=== PATIENT | female | born 1985 | race Caucasian/White ===

== ENCOUNTER 2020-06-01 15:41 | Emergency (ER) | payer OTHER, SELFPAY ==
[2020-06-01 15:46] VITALS: BP 150/78; PULSE 97; RESP 20; TEMP 36.2; O2SAT 99
--- NOTE | 2020-06-01 16:15 | DI.RAD_ITS ---
EXAM: XR ELBOW LT COMPLETE CLINICAL HISTORY: pain, fall. TECHNIQUE: 2D digital imaging was performed. COMPARISON: No exams were available for comparison FINDINGS: BONES: There is a 0.1 x 0.4 cm crescent shaped osseous fragment between the distal humerus and the ra dial head suspicious for displaced fracture fragment. Its site of origin is indeterminate. No bony destructive lesion is seen. JOINTS: The elbow is normally aligned. There is a joint effusion present. SOFT TISSUE: Normal. IMPRESSION: 1. Bony fragment interposed between the distal humerus and the radial head most suggestive of an intr a-articular fracture fragment. The site of origin is indeterminate. A CT scan should be considered for further evaluation. 2. Moderate joint effusion which may represent hemarthrosis. DATA REPOSITORY: RADIATION DOSE DELIVERED:
[2020-06-01] MEDS: Acetaminophen 500 MG TAB 1000 MG PO (16:25)
[2020-06-01] MEDS: Ibuprofen 600 MG TAB PO (16:25)
--- NOTE | 2020-06-01 16:55 | DI.VRAD_ITS ---
Addendum created by Evaristo Reynoso MD on 06/01/2020 4:56:40 PM EST: Findings were discussed with GAVIN MORALES at 06/01/2020 4:56 PM EST. Initial report created on 06/01/2020 4:55:28 PM EST: PROCEDURE INFORMATION: Exam: XR Left Elbow Exam date and time: 06/01/2020 4:42 PM Age: 34 years old Clinical indication: Injury or trauma; Fall; Work related; Blunt trauma (contusions or hematomas); Elbow; Left TECHNIQUE: Imaging protocol: XR Left elbow. Views: 3 or more views. COMPARISON: No relevant prior studies available. FINDINGS: Bones/joints: There is a moderate elbow joint effusion. On the oblique view, there is a 1 x 4 mm ossified body projecting at the radial head articular surface in the region of the radial humeral joint, consistent with tiny fracture fragment. There is a suggestion of cortical irregularity and possible subtle cortical step-off of the radial head articular surface on this view and findings suggest tiny intra-articular fracture of the radial head. The joint spaces are maintained without degenerative changes. Mineralization is normal. There are no subluxations. Soft tissues: Normal. IMPRESSION: 1. Findings suggest tiny intra-articular fracture involving the radial head as described above. Follow-up films in 10 days could be obtained as clinically indicated. 2. Moderate elbow joint effusion, may represent hemarthrosis. Dictated and Authenticated by: Evaristo Reynoso MD. Ordering:IVANA Ojeda MD
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
[2020-06-01 17:42] VITALS: BP 138/82; PULSE 99; RESP 16; TEMP 36.5; O2SAT 96
== END 2020-06-01 17:35 | disposition home or self-care (01) ==
PROVIDERS: Emergency Provider Nurse Practitioner Acute Care; PCP Nurse Practitioner Adult Health
DX: S52.122A Displaced fracture of head of left radius, initial encounter for closed fracture (principal); W19.XXXA Unspecified fall, initial encounter; Y99.0 Civilian activity done for income or pay; Y92.210 Daycare center as the place of occurrence of the external cause; E11.9 Type 2 diabetes mellitus without complications
CPT/HCPCS: 24650; 73080

== ENCOUNTER 2020-06-02 15:06 | Outpatient (CLI) | payer OTHER, SELFPAY ==
--- NOTE | 2020-06-02 14:45 | DI.RAD_ITS ---
EXAM: XR ELBOW LT COMPLETE CLINICAL HISTORY: LEFT ELBOW ELBOW. TECHNIQUE: 2D digital imaging was performed. COMPARISON: CR,XR XR ELBOW LT COMPLETE from 06/01/2020 FINDINGS: BONES: The crescentic density seen between the radial head and the distal humerus is not visualized o n the current examination. The articular surfaces appear well maintained. No definite fractures eddie ntified. If there is concern for an occult fracture is CT scan should be considered. No bony destru ctive lesion is seen. JOINTS: The elbow is normally aligned. A joint effusion is again seen. SOFT TISSUE: Normal. IMPRESSION: Joint effusion. If there is concern for an occult fracture or internal derangement, a CT scan or MRI should be considered for further evaluation. DATA REPOSITORY: RADIATION DOSE DELIVERED:
== END 2020-06-02 15:26 ==
PROVIDERS: PCP Nurse Practitioner Adult Health; Referring Provider Nurse Practitioner Adult Health; Visit Provider Student in an Organized Health Care Education/Training Program
DX: M25.422 Effusion, left elbow (principal)
CPT/HCPCS: 73080

== ENCOUNTER 2020-06-16 01:32 | Outpatient (CLI) | payer SELFPAY ==
--- NOTE | 2020-06-16 14:00 | DI.CT_ITS ---
EXAM: CT UPPER EXTREMITY LT WO CLINICAL HISTORY: Loose body, fracture, radiocapitellar joint,LT ELBOW FX,M24.022,M25.529, TECHNIQUE: Imaging Protocol: Axial computed tomography images with coronal and sagittal reformatted images were created and reviewed. CONTRAST MATERIAL: Noncontrast COMPARISON: CR,XR XR ELBOW LT COMPLETE from 06/01/2020 CR,XR XR ELBOW LT COMPLETE from 06/01/2020 CR XR ELBOW LT COMPLETE from 06/02/2020 CR XR ELBOW LT COMPLETE from 06/02/2020 FINDINGS: There is a small declivity in the capitellum. There is a curvilinear bony fragment positioned kennel supervisor ior to the radial head. There is a slight declivity in the lateral aspect of the radial head. There is a bony fragment seen positioned posterior to the humerus, in the joint space. An additional tiny bony fragment is seen anteriorly in the joint space close to the midline. A joint effusion is seen. IMPRESSION: Small fractures at the articular aspect of the capitellum as well as lateral aspect of the radial hea d with displaced fracture fragments in the joint space. RADIATION DOSE DELIVERED: 122.08mGy.cm Total DLP DATA REPOSITORY: All CT scans at this facility are submitted to the National Radiology Data Registry (NRDR) Dose Index Registry (DIR) with the [employer] (A[employer]). RADIATION OPTIMIZATION: All CT scans at this facility use at least one of these dose optimization te chniques: automated exposure control; mA and/or kV adjustment per patient size (includes targeted exa ms where dose is matched to clinical indication); or iterative reconstruction.
== END 2020-06-16 01:52 ==
PROVIDERS: PCP Nurse Practitioner Adult Health; Visit Provider Student in an Organized Health Care Education/Training Program
DX: M24.022 Loose body in left elbow (principal); S52.122A Displaced fracture of head of left radius, initial encounter for closed fracture; S42.452A Displaced fracture of lateral condyle of left humerus, initial encounter for closed fracture
CPT/HCPCS: 73200

== ENCOUNTER 2020-08-25 13:48 | Outpatient (CLI) | payer OTHER, SELFPAY ==
--- NOTE | 2020-08-25 13:30 | DI.RAD_ITS ---
EXAM: XR ELBOW LT COMPLETE CLINICAL HISTORY: f/u. TECHNIQUE: 2D digital imaging was performed. COMPARISON: CR XR ELBOW LT COMPLETE from 06/02/[address] UPPER EXTREMITY LT WO from 06/16/2020 FINDINGS: BONES: The radial and capitellar fractures are not well seen on the x-ray of the elbow. They are bet ter appreciated on the CT scan from 06/16/2020. No acute displaced fracture is seen. No bony destru ctive lesion is seen. JOINTS: The elbow is normally aligned. No joint effusion is seen. SOFT TISSUE: Normal. IMPRESSION: DATA REPOSITORY: RADIATION DOSE DELIVERED:
== END 2020-08-25 13:49 | disposition home or self-care (01) ==
LOC: DIORS 13:48
PROVIDERS: PCP Nurse Practitioner Adult Health; Visit Provider Student in an Organized Health Care Education/Training Program
DX: M25.522 Pain in left elbow (principal); S52.122D Displaced fracture of head of left radius, subsequent encounter for closed fracture with routine healing
CPT/HCPCS: 73080

== ENCOUNTER 2021-04-21 01:34 | Outpatient (CLI) | payer SELFPAY ==
--- NOTE | 2021-04-21 13:00 | NS.NUTBLAN_ITS ---
Anju was referred to Medical Nutrition Therapy for weight management and diabetes self management. 5'5 270 lbs, BMI: 45. Most recent A1C: 9.2%. Meds: Metformin 1000 mg qd, 5 mg glipizide qd. 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 She reports no time to exercise or check blood sugars. Has limited income for groceries. Strong fam hx of Dm2, had GDM with second . Diet Recall: Breakfast: Iced Coffee, Lunch- school lunch, Dinner- home cooked, mostly rice or pasta dishes. Session today focused on weight loss options. Introduced option of hypocaloric diet that will lead to 10% weight loss (27 lbs) in next 6 months and help reduce A1C. Also discussed option of weight loss surgery which will lead to 60-80% weight loss of excess weight (80-100 lbs weight loss) and hopefully put Dm in remission. Provided [facility] bariatric program link. Educated Anju on how to follow lower carb, lower calorie meal plan with focus on complex carbs, lean protein and healthy fats. Provided meal plans. Session today also included placing Dexcom 6 continuous glucose monitor and synched it with her iphone for remote monitoring. CGM will be useful tool in seeing how various meals affect her blood sugars. CGM can help with weight loss as well, as its advisable to limit foods that spike blood sugars after meals for weight loss to be acheived. follow up planned 04/30/21 at 2 pm for CGM data evaluation. Will provide PCP with all CGM data.
== END 2021-04-21 01:35 | disposition home or self-care (01) ==
LOC: DS 01:34
PROVIDERS: PCP Nurse Practitioner Adult Health; Visit Provider Dietitian, Registered
DX: E11.9 Type 2 diabetes mellitus without complications (principal); Z68.42 Body mass index [BMI] 45.0-49.9, adult; Z79.84 Long term (current) use of oral hypoglycemic drugs; Z71.3 Dietary counseling and surveillance
CPT/HCPCS: 97802

== ENCOUNTER 2021-05-04 08:56 | Outpatient (CLI) | payer SELFPAY ==
--- NOTE | 2021-05-04 10:00 | NS.NUTBLAN_ITS ---
Anju returns for Medical Nutrition Therapy for diet education for weight management. 5'5 252 lbs BMI: 42. She has been using a Dexcom 6 continuous glucose monitor for the last 10 days. Does not want this renewed. Meds: 1000 mg metformin, qd, 5 mg glipizide qd. 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 Anju reports that she is not interested in weight loss surgery and would like to try to lose weight on her own. Goal Wt: 190 lbs. Ambulatory Glucose Profile 04/21/21-04/30/21 Average Glucose: 146 mg/dl In Target Range: 79.2% excellent <70 mg/dl 0.7% excellent > 180 mg/dl 20.1% good >250 mg/dl 1.8% excellent coefficient of variation 30% ideal Anju's daily glucose patterns indicate that her high blood sugars (180-150 mg/dl) occurs between 1 am- 5 am and is due to excess liver output. Overall, blood sugars are adequately controlled however, would benefit from some medication adjustments. Recommend 1000 mg metformin BID. May consider d/c glipizide as could contribute to weight gain. May benefit from GLP1ra such as Ozempic which may also help with weight loss. Session today focused on carb counting and meal planning for ideal weight loss. Anju states she will not be able to exercise as does not have the time with working FT and having 2 kids with evening activities. Goal weight loss per month: 10 lbs, goal weight: 190 lbs. Follow up meetin06/15/21 at 10 am.
== END 2021-05-04 08:57 | disposition home or self-care (01) ==
LOC: DS 08:56
PROVIDERS: PCP Nurse Practitioner Adult Health; Visit Provider Dietitian, Registered
DX: E66.8 Other obesity (principal); E11.9 Type 2 diabetes mellitus without complications; Z79.84 Long term (current) use of oral hypoglycemic drugs; Z71.3 Dietary counseling and surveillance; Z68.41 Body mass index [BMI] 40.0-44.9, adult
CPT/HCPCS: 97803

== ENCOUNTER → 2023-08-24 18:04 | Outpatient (CLI) | payer OTHER, SELFPAY ==
--- NOTE | 2023-08-24 18:15 | DI.RAD_ITS ---
Exam(s) XR KNEE RT 3V AP,LAT,MCIAELA EXAM: XR KNEE RT 3V AP,LAT,MICAELA CLINICAL HISTORY: m25.561 PAIN IN RIGHT KNEE. TECHNIQUE: 2D digital imaging was performed. Three views. COMPARISON: No exams were available for comparison FINDINGS: BONES: No acute fracture is present. No bony destructive lesion is seen. JOINTS: The knee is normally aligned. No joint effusion is seen. The joint spaces are maintained. SOFT TISSUE: Normal. IMPRESSION: Unremarkable radiographs of the right knee. DATA REPOSITORY: RADIATION DOSE DELIVERED:
== END ==
PROVIDERS: PCP Nurse Practitioner Adult Health; Visit Provider Physician Assistant Medical
DX: M25.561 Pain in right knee (principal)
CPT/HCPCS: 73562

== ENCOUNTER 2023-12-19 12:21 | Emergency (ER) | payer OTHER, SELFPAY ==
[2023-12-19 12:37] VITALS: BP 154/90; PULSE 94; RESP 16; TEMP 36.6; O2SAT 99
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
[2023-12-19] MEDS: Acetaminophen 325 MG TAB 650 MG PO (14:20)
--- NOTE | 2023-12-19 14:36 | DI.RAD_ITS ---
Exam(s) XR KNEE RT 4V AP,LAT,MICAELA,PAT EXAM: XR KNEE RT 4V AP,LAT,MICAELA,PAT CLINICAL HISTORY: R knee pain. TECHNIQUE: 2D digital imaging was performed of the right knee. Four views obtained. Merchant, AP, la teral and PA tunnel views were obtained. COMPARISON: CR XR KNEE RT 3V AP,LAT,MICAELA from 08/24/2023 FINDINGS: BONES: No acute fracture is present. No bony destructive lesion is seen. JOINTS: The knee is normally aligned. No joint effusion is seen. SOFT TISSUE: Normal. IMPRESSION: Unremarkable radiographs of the right knee. DATA REPOSITORY: RADIATION DOSE DELIVERED:
== END 2023-12-19 14:58 | disposition home or self-care (01) ==
PROVIDERS: Emergency Provider Nurse Practitioner Family; PCP Nurse Practitioner Adult Health
DX: M25.561 Pain in right knee (principal)
CPT/HCPCS: 99283; 73564

== ENCOUNTER 2024-05-28 14:37 | Emergency (ER) | payer OTHER, SELFPAY ==
[2024-05-28 14:40] VITALS: BP 159/82; PULSE 96; RESP 15; TEMP 36.9; O2SAT 96
--- NOTE | 2024-05-28 15:27 | DI.RAD_ITS ---
Exam(s) XR TIB/FIB LT XR ANKLE LT COMPLETE EXAM: XR ANKLE LT COMPLETE CLINICAL HISTORY: ankle pain TECHNIQUE: 2D digital imaging was performed. Three views of the ankle. Two views of the tibia and fibula COMPARISON: CR XR TIB/FIB LT from 05/28/2024 FINDINGS: BONES: No acute fracture is present. No bony destructive lesion is seen. JOINTS:The ankle mortise is normally aligned. The joint spaces are maintained. No significant degen erative changes. The knee is unremarkable. SOFT TISSUE: Normal. IMPRESSION: Unremarkable radiographs of the left ankle and tibia and fibula. DATA REPOSITORY: RADIATION DOSE DELIVERED:
[2024-05-28] MEDS: Acetaminophen 500 MG TAB 1000 MG PO (15:37)
[2024-05-28 15:38] VITALS: BP 150/82; PULSE 80; RESP 18; TEMP 36.6; O2SAT 99
--- NOTE | 2024-05-28 17:19 | W.ED.GENAD ---
Discharge Plan Disposition Patient Disposition: Home Discharge Details Clinical Impression: Left ankle sprain Primary Care Provider: Joya Montoya ED Provider: Teresita Hernandez Home Meds and New Rx's Prescriptions: No Action albuterol sulfate 90 mcg/actuation Hfa Aerosol Inhaler 2 puff INHALATION Q6H PRN loratadine 10 mg Tablet 10 mg PO DAILY PRN omeprazole 20 mg Tablet,Delayed Release (Dr/Ec) 20 mg PO DAILY PRN metformin 500 mg tablet 1,000 mg PO QAM venlafaxine 150 mg capsule,extended release 24hr 187.5 mg PO DAILY hydrochlorothiazide 12.5 mg tablet 12.5 mg PO DAILY Patient Comments: TAKE ONE TABLET BY MOUTH EVERY DAY ALONG WITH LISINOPRIL FOR BLOOD PRESSURE Discharge Instructions Instructions: Ankle Sprain ED Additional Instructions: Your x-rays do not reveal a fracture. You have likely sprained your ankle and this can be very painful and take a while to heal You were provided a walking boot and crutches to use as needed for comfort. Put as much weight as you can tolerate on your foot. Try not to immobilize your ankle all of the time in the walking boot. Range of motion and gentle stretching and strengthening exercises will help with your healing. Continue Motrin and Tylenol. Discharge Data Discharge Date/Time-TO BE ENTERED AT DEPARTURE: 05/28/24 15:45 HPI General Date/Time Provider Initiated Documentation: 05/28/24 14:52. Limitations to Documentation: no limitations. Information obtained by: patient. HPI Narrative: 38-year-old female without significant past medical history presents for an left ankle injury. Just prior to arrival she was walking and stepped awkwardly and her left ankle rolled. She reports immediate onset of pain on the outside of her left ankle. She states that the school nurse wrapped it up for her. She has not attempted to put any weight on it at all. She denies any other injuries from the fall. She took some Motrin prior to arrival and iced the ankle which does seem to have helped slightly. Related Data Home Medications ?Medication ?Instructions ?Recorded ?Confirmed albuterol sulfate 90 mcg/actuation 2 puff inhalation Q6H PRN 06/01/20 05/28/24 aerosol inhaler loratadine 10 mg tablet 10 mg PO DAILY PRN 06/01/20 05/28/24 omeprazole 20 mg tablet,delayed 20 mg PO DAILY PRN 06/01/20 05/28/24 release metformin 500 mg tablet 1,000 mg PO QAM 10/13/20 05/28/24 venlafaxine 150 mg 187.5 mg PO DAILY 10/13/20 05/28/24 capsule,extended release 24 hr hydrochlorothiazide 12.5 mg tablet 12.5 mg PO DAILY 05/28/24 05/28/24 Allergies Allergy/AdvReac Type Severity Reaction Status Date / Time seasonal allergies Allergy Unknown Uncoded 05/28/24 14:44 General Stated Complaint: Orthopedic NADINE: 4 Exam Narrative Exam Narrative: Review of Systems: All systems reviewed & are unremarkable except as noted in HPI and below Well-developed, no acute distress NCAT Unlabored respiratory effort Left knee unremarkable, no proximal tibial tenderness, left ankle with bruising and swelling over lateral malleolus, no fifth metatarsal head tenderness, no obvious deformity Course Vital Signs Vital signs: Vital Signs Temperature 36.9 C 05/28/24 14:40 Pulse 96 H 05/28/24 14:40 Respiratory Rate 15 05/28/24 14:40 Blood Pressure 159/82 H 05/28/24 14:40 Pulse Oximetry 96 05/28/24 14:40 Temperature 36.6 C 05/28/24 15:38 Pulse 80 05/28/24 15:38 Respiratory Rate 18 05/28/24 15:38 Respiratory Effort Normal 05/28/24 14:43 Blood Pressure 150/82 H 05/28/24 15:38 Blood Pressure Position Sitting 05/28/24 14:40 Pulse Oximetry 99 05/28/24 15:38 Oxygen Delivery Method Room Air 05/28/24 14:40 Oxygen Flow Rate 0 05/28/24 14:40 Pain Level 6 05/28/24 15:38 Medical Decision Making Emergent evaluation of left ankle injury. Initial differential includes fracture, ligamentous injury, soft tissue injury. She has obvious swelling and bruising on examination. X-ray of her tib-fib and ankle were obtained. These were reviewed and interpretation concurs with radiology report that there is no acute bony process. She was provided walking boot and crutches to use as needed for comfort. Weightbearing as tolerated. Instructions on stretching and strengthening provided to the patient. Right recommend continued Motrin and Tylenol and follow-up with PCP as needed. Quality:[facility] Related Social Needs: No Data to Display PFSH All Active Problems Left ankle sprain (Acute) Pain of elbow joint with osteochondral injury (Acute) Loose body in left elbow (Acute) Medical History Migraine Type 2 diabetes mellitus Asthma Surgical History H/O oral surgery Social History Smoking risk assessment performed?: No Alcohol Intake: never Drug use: Never Substance use type: does not use Current gender identity: female Do you feel safe at home: Yes Do you feel safe in your relationship?: Yes
== END 2024-05-28 15:45 | disposition home or self-care (01) ==
LOC: ER 15:32
PROVIDERS: Emergency Provider Emergency Medicine; PCP Nurse Practitioner Adult Health
DX: S93.402A Sprain of unspecified ligament of left ankle, initial encounter (principal); Z79.82 Long term (current) use of aspirin; E11.9 Type 2 diabetes mellitus without complications; X50.1XXA Overexertion from prolonged static or awkward postures, initial encounter; Y93.01 Activity, walking, marching and hiking; Y92.89 Other specified places as the place of occurrence of the external cause
CPT/HCPCS: 99283; 73590; 73610